=== PATIENT | female | born 1995 | race Asian ===

== ENCOUNTER 2017-03-23 11:18 | Emergency (ER) | payer OTHER ==
[~2017-03-23] VITALS: Ht 152.4 cm; Wt 73.0 kg
[2017-03-23 11:46] VITALS: BP 101/70
[2017-03-23] MEDS ORDERED: DEBROX15 M1 BOTH EARS (11:50)
[2017-03-23 11:57] VITALS: BP 101/70
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
== END 2017-03-23 11:57 | disposition home or self-care (01) ==
LOC: EMR 11:47
DX: H61.23 Impacted cerumen, bilateral (principal)
CPT/HCPCS: 99283

== ENCOUNTER 2020-12-24 11:40 | Emergency (ER) | payer OTHER ==
[~2020-12-24] VITALS: Ht 152.4 cm; Wt 68.0 kg
[~2020-12-24 11:40] MED LIST: DEBROX15 M1 BOTH EARS
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
[2020-12-24] MEDS ORDERED: TYLENOL EXTRA500 MG ORAL (14:04)
[2020-12-24] MEDS ORDERED: LIDODERM700 M1 TOPIC (14:04)
[2020-12-24] MEDS ORDERED: ROBAXIN-750750 MG PO (14:04)
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
[2020-12-24 14:17] VITALS: BP 128/66
--- NOTE | 2020-12-24 14:17 | NUR ---
ED Nurse Note: Pt cleared by health care Provider for discharge. DC instructions/prescription was given and explained to pt and verbalized understanding of teachings. All medical deviecs such as ID band removed. Pt is AAO x4, ambulatory and left with all personal belongings.
== END 2020-12-24 14:19 | disposition home or self-care (01) ==
LOC: EMR 12:21
DX: R51.9 Headache, unspecified (principal); M54.2 Cervicalgia; M54.9 Dorsalgia, unspecified; V43.92XA Unspecified car occupant injured in collision with other type car in traffic accident, initial encounter; Y92.410 Unspecified street and highway as the place of occurrence of the external cause
CPT/HCPCS: 70450; 72070; 72125; Z7502; 99284